=== PATIENT | male | born 1965 | race Caucasian/White ===

== ENCOUNTER 2017-10-11 08:20 | Outpatient (RCR) | payer OTHER, MEDICAID | END 2017-11-04 | LOC: M CR 08:20 | DX: Z95.1 Presence of aortocoronary bypass graft (principal) | CPT/HCPCS: 93798 ==

== ENCOUNTER 2019-10-26 10:45 | Emergency (ER) | payer OTHER ==
[~2019-10-26] VITALS: Ht 175.3 cm; Wt 85.4 kg
[~2019-10-26 10:45] MED LIST: ASPI81TA85 PO; COUM2TAB22 PO; KLON1TAB PO; LIPI20TA PO; LOPR1TAB6 PO; OMEP40CA97 PO; RITA10TA PO
[2019-10-26 11:57] LABS: BASO # 0.1 10^3/uL (0.0-0.2); BASO % 0.4 % (0.0-1.0); EOS # 0.1 10^3/uL (0.0-0.5); EOS % 1.1 % (0.0-3.0); HEMATOCRIT 39.7 % (42.0-52.0); HEMOGLOBIN 13.1 g/dl (13.5-17.5); LYMPH # 2.5 10^3/uL (1.5-5.0); MEAN CORPUSCULAR VOLUME 94.1 fl (80.0-96.0); MONO # 1.3 10^3/uL (0.0-0.8); MONO % 10.2 % (0.0-5.0); NEUTROPHILS # 8.4 10^3/uL (1.5-8.5); NEUTROPHILS % 67.8 % (36.0-66.0); PLATELET COUNT, AUTOMATED 524 10^3/uL (150-450); RED BLOOD COUNT 4.22 10^6/uL (4.30-6.10); WHITE BLOOD COUNT 12.5 10^3/uL (4.0-10.0)
[2019-10-26 12:08] LABS: INR 1.15; PROTHROMBIN TIME 14.5 SECONDS (11.8-14.0)
--- NOTE | 2019-10-26 12:13 | REP ---
REASON: Cough and dyspnea. PRIORS None. FINDINGS: The technique utilized in obtaining the radiograph has magnified the cardiac silhouette and accentuated the interstitial markings. The superior mediastinal structures are midline. The cardiac silhouette is unremarkable in size, shape, and position. The diaphragmatic surfaces of the lungs are regular, and the costophrenic angles are clear. The pulmonary ac are clear. The imaged osseous structures are intact. Note is made of previous median sternotomy. IMPRESSION: There is no acute cardiopulmonary disease. Electronically Signed by Byron Mosher DO 10/26/2019 03:19 P
[2019-10-26 12:32] LABS: ALBUMIN 2.9 GM/DL (3.2-5.2); ALT/SGPT 22 U/L (12-78); BILIRUBIN,DIRECT 0.1 MG/DL (0.0-0.2); BILIRUBIN,TOTAL 0.4 MG/DL (0.2-1.0); BLOOD UREA NITROGEN 12 MG/DL (7-18); CALCIUM LEVEL 9.4 MG/DL (8.5-10.1); CARBON DIOXIDE LEVEL 29 MEQ/L (21-32); CHLORIDE LEVEL 102 MEQ/L (98-107); CREATININE FOR GFR 0.99 MG/DL (0.70-1.30); GLOMERULAR FILTRATION RATE > 60.0 (>56); GLUCOSE, FASTING 98 MG/DL (70-100); NT-PRO BNP 158 PG/ML (<125); POTASSIUM SERUM 4.8 MEQ/L (3.5-5.1); SODIUM LEVEL 135 MEQ/L (136-145); THYROXINE (T4) 9.4 UG/DL (4.5-12.0); TOTAL PROTEIN 6.5 GM/DL (6.4-8.2)
[2019-10-26] MEDS ORDERED: KETOROLAC 30 MG/ML 1ML VIAL IV ONE (13:00)
[2019-10-26] MEDS ORDERED: AUGMENTIN 875 MG TAB PO ONE (13:00)
[2019-10-26] MEDS ORDERED: KETO10TAB PO (13:15)
[2019-10-26] MEDS ORDERED: AUGM875T28 PO (13:15)
[2019-10-26 13:32] VITALS: BP 112/60
--- NOTE | 2019-10-26 19:08 | ECGEPIP ---
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
== END 2019-10-26 13:50 | disposition home or self-care (01) ==
LOC: M ED 10:45
DX: J06.9 Acute upper respiratory infection, unspecified (principal); R59.0 Localized enlarged lymph nodes; R51 Headache; I10 Essential (primary) hypertension; E78.5 Hyperlipidemia, unspecified; Z95.1 Presence of aortocoronary bypass graft; Z88.5 Allergy status to narcotic agent; Z79.899 Other long term (current) drug therapy
CPT/HCPCS: 71045; 80048; 80076; 83880; 84436; 84443; 85025; 85610; 87040; 93005; 96374; 99284; J1885; U0002

== ENCOUNTER → 2024-04-14 | Outpatient (CLI) | payer OTHER ==
[~2024-04-14] MED LIST changes: -ASPI81TA85 PO; +ASPI81TA86 PO; +AUGM875T28 PO; +KETO10TAB PO; -KLON1TAB PO; +KLON1TAB13 PO; +OMEP40CA4 PO; -OMEP40CA97 PO
== END ==
LOC: M PAIN 13:00
PROVIDERS: ATTEND Nurse Practitioner Family
DX: M79.18 Myalgia, other site (principal); G89.29 Other chronic pain; E78.00 Pure hypercholesterolemia, unspecified; F90.9 Attention-deficit hyperactivity disorder, unspecified type; Z85.46 Personal history of malignant neoplasm of prostate; Z87.891 Personal history of nicotine dependence; Z79.899 Other long term (current) drug therapy; Z88.0 Allergy status to penicillin; Z88.5 Allergy status to narcotic agent; Z91.018 Allergy to other foods